=== PATIENT | female | born 1945 | race Caucasian/White ===

== ENCOUNTER 2019-03-11 13:49 | Outpatient (CLI) | payer MEDICARE ==
--- NOTE | 2019-03-11 14:14 | RAD ---
Exam: Left fifth toe 3 views HISTORY: Pain. FINDINGS: There appears be subluxation of the fifth digit at the metatarsophalangeal joint. Findings are presumed be chronic given bony remodeling. Acute osseous abnormality is not appreciated. IMPRESSION: Chronic changes in the fifth metatarsal phalangeal joint space.
== END 2019-03-11 13:50 | disposition home or self-care (01) ==
LOC: BICRAD 13:49
PROVIDERS: ATTEND Podiatrist
DX: M79.674 Pain in right toe(s) (principal)

== ENCOUNTER 2020-10-31 09:11 | Observation (INO) | payer MEDICARE ==
[2020-10-31 10:04] LABS: #Basophils 0.1 thou/uL (0.0-0.2); #Eosinphils 0.2 thou/uL (0.0-0.7); #Lymphocytes 2.4 thou/uL (1.20-3.40); #Monocytes 0.8 thou/uL (0.11-0.59); #Neutrophils 4.9 thou/uL (1.40-6.50); %Basophils 1.1 % (0.0-1.0); %Lymphocytes 28.4 % (21.0-51.0); %Monocytes 9.1 % (0.0-10.0); %Neutrophils 58.4 % (42.0-75.0); Hemoglobin 13.8 g/dL (12.0-16.0); Mean Corpuscular Hemoglobin 31.7 pg (27.0-31.0); Mean Corpuscular Volume 93.1 fL (78.0-98.0); Mean Platelet Volume 6.5 fL (7.4-10.4); Platelet Count 316 thou/uL (130-400); RBC Distribution Width 12.2 % (11.5-14.5); Red Blood Cell (RBC) Count 4.36 mill/uL (4.20-5.40); White Blood Cell (WBC) Count 8.3 thou/uL (4.8-10.8)
--- NOTE | 2020-10-31 10:18 | CT ---
Exam: CT brain PROVIDED CLINICAL HISTORY: Altered mental status COMPARISON: 04/04/2016 FINDINGS: The ventricular system is normal in size and morphology. No evidence for intracranial hemorrhage or mass effect. The extracranial soft tissues and osseous structures demonstrate no evidence for an acute abnormality. IMPRESSION: No evidence for intracranial hemorrhage or mass effect.
[2020-10-31 10:19] LABS: Bilirubin Negative (Negative); Blood, Urine Negative (Negative); Clarity Clear (Clear); Glucose, Urine (Dipstick) Normal (Negative); Ketone, Urine Negative (Negative); Leukocyte Negative Leu/uL (Negative); Nitrite Negative (Negative); Protein, Urine (Dipstick) Negative (Neg-Trace); Specific Gravity, Urine 1.009 (1.002-1.036); Urobilinogen Normal mg/dL (Less than 2); pH, Urine 7.5 (5.0-9.0)
--- NOTE | 2020-10-31 10:21 | RAD ---
EXAM: Portable chest PROVIDED CLINICAL HISTORY: Altered mental status COMPARISON: None FINDINGS: Cardiac and mediastinal silhouette is within normal limits. No focal consolidation, pleural fluid or pneumothorax evident. IMPRESSION: No evidence for an acute cardiopulmonary process.
[2020-10-31 10:28] LABS: ALT (SGPT) 32 U/L (8-55); AST (SGOT) 39 U/L (5-34); Albumin 4.6 g/dL (3.4-4.8); Alkaline Phosphatase 80 U/L (40-110); Anion Gap 17 mmol/L (10-20); BUN (Urea Nitrogen) 15 mg/dL (9.8-20.1); Bilirubin, Total 0.4 mg/dL (0.2-1.2); Calc. Creatinine Clearance 0 mL/min (70-130); Calcium 9.8 mg/dL (7.8-10.44); Carbon Dioxide 27 mmol/L (23-31); Chloride 98 mmol/L (98-107); Glucose 117 mg/dL (83-110); Potassium 4.5 mmol/L (3.5-5.1); Protein, Total 7.6 g/dL (5.8-8.1); Sodium 137 mmol/L (136-145)
[2020-10-31] MEDS ORDERED: hydrALAZINE 20 MG/ML VIAL ONE (11:04)
[2020-10-31 11:55] LABS: INR-International Normal Ratio 0.9; PTT 26.4 sec (22.9-36.1)
[2020-10-31 12:27] LABS: Free T4 (Free Thyroxine) 1.14 ng/dL (0.70-1.48); Thyroid Stimulating Hormone 3.786 uIU/mL (0.35-4.94)
[2020-10-31] MEDS ORDERED: Aspirin 325 MG TAB ONE (12:56)
[2020-10-31] MEDS ORDERED: hydrALAZINE 20 MG/ML VIAL SLOW IVP PRN ×2 (13:09→15:26)
[2020-10-31] MEDS ORDERED: Ondansetron PF 4 MG/2 ML Vial IVP PRN (13:12)
[2020-10-31] MEDS ORDERED: Ondansetron ODT 4 MG TAB PO PRN (13:12)
[2020-10-31] MEDS ORDERED: Senokot S 8.6-50 MG TAB PO PRN (13:12)
[2020-10-31] MEDS ORDERED: Cyanocobalamin 1000 MCG/ML VIAL IM SCH ×2 (13:15→17:15)
[2020-10-31] MEDS ORDERED: Sodium Chloride 0.9% 1,000 ML IV SCH (13:15)
[2020-10-31 13:34] LABS: Hemoglobin A1c 5.5 % (4.0-6.0)
[2020-10-31 14:17] LABS: Troponin I Less than 0.010 ng/mL (< 0.028)
--- NOTE | 2020-10-31 14:56 | MRI ---
EXAM: MRI Brain WO Con PROVIDED CLINICAL HISTORY: Stroke. Altered mental status. COMPARISON: CT head on 10/31/2020 FINDINGS: Increased T2-weighted signal intensity areas are seen within the right cerebellar hemisphere most lik chapin attributable to remote infarctions. There are no areas of restricted diffusion seen to suggest an acute infarction. Scattered punctate and minimal patchy areas of increased FLAIR and T2-weighted signal intensity are s een in the periventricular and subcortical white matter which are nonspecific but likely reflective of chronic small vessel ischemic changes. Mild cerebral and cerebellar volume loss is present. The ventricular system is normal in size, shape, and position for the degree of sulcal atrophy. Appropriate flow voids are demonstrated in the large intracranial vessels at the base of the brain. A few right-sided mastoid effusions are visualized. Minimal mucosal thickening is present in the righ t maxillary antrum. The orbits and remainder of the skull base demonstrates a normal MRI appearance. IMPRESSION: 1. No acute intracranial abnormality is demonstrated. 2. Remote infarctions right cerebellar hemisphere. 3. Findings likely attributable to mild chronic small vessel ischemic changes. 4. Right mastoid effusions..
--- NOTE | 2020-10-31 15:31 | PDOC.HHP ---
Hospitalist HPI Altered mentation History of Present Illness: Patient is a 74-year-old female with anxiety, hyperlipidemia and hypothyroidism presented to the emergency room with altered mentation. History obtained from the patient and the family at the bedside. Over the last 1 week patient has intermittent alteration in mentation. She has been saying that Lord is coming for her soon. The daughter states that she has been talking about things that do not make sense. Today she spent all of her morning calling family and letting them know that she would be going to [facility] soon. There is no weakness numbness of any of her extremities reported. She denies any vision abnormality, swallowing abnormality, fever, urinary or upper respiratory symptoms. Patient had first Covid vaccine approximately 2 weeks ago. She also had a fall 4 days ago while she was at a bookstore without any head injury or loss of consciousness. In the emergency room her initial vital signs show temperature 98.5, respiration of 16, pulse rate of 7 0 with a blood pressure of 183/89 with O2 saturation of 97% on room air. She received aspirin and 10 mg IV hydralazine in the emergency room. CT scan of the brain was negative for acute findings Allergies/Adverse Reactions: Allergy/AdvReac Type Severity Reaction Status Date / Time codeine Allergy Verified 01/15/20 19:44 Penicillins Allergy Verified 01/15/20 19:44 Home Medications: Medication Instructions Recorded Confirmed Type Calcium Carbonate/Vitamin D3 2 tablet PO BID 04/04/16 04/04/16 History [Calcium 600 + Vitamin D] Cetirizine HCl [Allergy Relief] 10 mg PO DAILY 04/04/16 04/04/16 History Ipratropium [place] [Ipratropium 1 spray EA NARE TID 04/04/16 04/04/16 History [place] 0.06% Nasal [place]] Levothyroxine Sodium [Synthroid] 137 mcg PO DAILY 04/04/16 04/04/16 History Meloxicam [Mobic] 15 mg PO DAILY 04/04/16 04/04/16 History Montelukast Sodium [Singulair] 10 mg PO HS 04/04/16 04/04/16 History Multivitamin [Multi-Vitamin Daily] 1 tablet PO DAILY 04/04/16 04/04/16 History Pregabalin [Lyrica] 225 mg PO TID 04/04/16 04/04/16 History Simvastatin [Zocor] 40 mg PO HS 04/04/16 04/04/16 History buPROPion HCl [Wellbutrin SR] 200 mg PO BID 04/04/16 04/04/16 History diphenhydrAMINE [Benadryl] 25 mg PO HS 04/04/16 04/04/16 History Past History: PAST MEDICAL HISTORY: Chronic low back pain, recurrent falls, history of UTI, hypothyroidism, hyperlipidemia, diverticulosis PAST SURGICAL HISTORY: Bilateral knee replacement ALLERGIES: Codeine and penicillin SOCIAL HISTORY: Currently lives at home with her family. 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 No alcohol tobacco or drug use. She makes her own decision with the help of her family FAMILY HISTORY: Patient denies any heart disease or diabetes in her family Hospitalist HPI ROS Respiratory: denies: cough, dry, shortness of breath, hemoptysis, SOB with excertion, pleuritic pain, sputum, wheezing, other Cardiovascular: denies: chest pain, palpitations, orthopnea, paroxysmal noc. dyspnea, edema, light headedness, other Gastrointestinal: denies: nausea, vomiting, abdominal pain, diarrhea, cons tipation, melena, hematochezia, other All other systems reviewed; all pertinent +/- noted in HPI/Subj Hospitalist Exam General Appearance: awake alert Eye: PERRL, anicteric sclera ENT: normocephalic atraumatic, no oropharyngeal lesions, moist mucosa Neck: supple, symmetric, no JVD Heart: RRR, no gallops, no rubs, normal peripheral pulses Respiratory: no wheezes, no rales, no ronchi, normal chest expansion Gastrointestinal: non-tender, non-distended, normal bowel sounds, no guarding, no rigidity Extremities: no cyanosis, no clubbing, no edema Skin: normal turgor, no lesions Neurological: cranial nerve grossly intact, normal sensation to touch, no weakness Musculoskeletal: normal tone, normal strength, no muscle wasting Psychiatric: normal affect, A&O x 3 Psychiatric - other findings: Intermittent confusion Hospitalist Results Result Diagrams: 10/31/20 09:48 10/31/20 09:48 Lab results: Laboratory Last Values WBC 8.3 thou/uL (4.8-10.8) 10/31/20 09:48 RBC 4.36 mill/uL (4.20-5.40) 10/31/20 09:48 Hgb 13.8 g/dL (12.0-16.0) 10/31/20 09:48 Hct 40.6 % (36.0-47.0) 10/31/20 09:48 MCV 93.1 fL (78.0-98.0) 10/31/20 09:48 MCH 31.7 pg (27.0-31.0) H 10/31/20 09:48 MCHC 34.0 g/dL (32.0-36.0) 10/31/20 09:48 RDW 12.2 % (11.5-14.5) 10/31/20 09:48 Plt Count 316 thou/uL (130-400) 10/31/20 09:48 MPV 6.5 fL (7.4-10.4) L 10/31/20 09:48 Neutrophils % 58.4 % (42.0-75.0) 10/31/20 09:48 Lymphocytes % 28.4 % (21.0-51.0) 10/31/20 09:48 Monocytes % 9.1 % (0.0-10.0) 10/31/20 09:48 Eosinophils % 3.0 % (0.0-10.0) 10/31/20 09:48 Basophils % 1.1 % (0.0-1.0) H 10/31/20 09:48 Neutrophils # 4.9 thou/uL (1.40-6.50) 10/31/20 09:48 Lymphocytes # 2.4 thou/uL (1.20-3.40) 10/31/20 09:48 Monocytes # 0.8 thou/uL (0.11-0.59) H 10/31/20 09:48 Eosinophils # 0.2 thou/uL (0.0-0.7) 10/31/20 09:48 Basophils # 0.1 thou/uL (0.0-0.2) 10/31/20 09:48 PT 12.0 sec (12.0-14.7) 10/31/20 11:38 INR 0.9 10/31/20 11:38 APTT 26.4 sec (22.9-36.1) 10/31/20 11:38 Sodium 137 mmol/L (136-145) 10/31/20 09:48 Potassium 4.5 mmol/L (3.5-5.1) 10/31/20 09:48 Chloride 98 mmol/L (98-107) 10/31/20 09:48 Carbon Dioxide 27 mmol/L (23-31) 10/31/20 09:48 Anion Gap 17 mmol/L (10-20) 10/31/20 09:48 BUN 15 mg/dL (9.8-20.1) 10/31/20 09:48 Creatinine 1.14 mg/dL (0.6-1.1) H 10/31/20 09:48 Estimated GFR (MDRD) 46 10/31/20 09:48 Glucose 117 mg/dL (83-110) H 10/31/20 09:48 Hemoglobin A1c 5.5 % (4.0-6.0) 10/31/20 09:40 Calcium 9.8 mg/dL (7.8-10.44) 10/31/20 09:48 Total Bilirubin 0.4 mg/dL (0.2-1.2) 10/31/20 09:48 AST 39 U/L (5-34) H 10/31/20 09:48 ALT 32 U/L (8-55) 10/31/20 09:48 Alkaline Phosphatase 80 U/L (40-110) 10/31/20 09:48 Ammonia 27 umol/L (18-72) 10/31/20 11:38 Troponin I Less than 0.010 ng/mL (< 0.028) 10/31/20 13:36 Serum Total Protein 7.6 g/dL (5.8-8.1) 10/31/20 09:48 Albumin 4.6 g/dL (3.4-4.8) 10/31/20 09:48 Globulin 3.0 g/dL (2.4-3.5) 10/31/20 09:48 Albumin/Globulin Ratio 1.5 g/dL (1.2-2.2) 10/31/20 09:48 Vitamin B12 376 pg/mL (211-911) 10/31/20 11:38 Folate 36.60 ng/mL (7.0-31.4) H 10/31/20 11:38 Free T4 1.14 ng/dL (0.70-1.48) 10/31/20 11:38 Free T3 1.86 pg/mL (1.71-3.71) 10/31/20 11:38 TSH 3rd Generation 3.7860 uIU/mL (0.35-4.94) 10/31/20 11:38 Urine Color Light-Yellow (Yellow) 10/31/20 09:54 Urine Clarity Clear (Clear) 10/31/20 09:54 Urine pH 7.5 (5.0-9.0) 10/31/20 09:54 Ur Specific [place] 1.009 (1.002-1.036) 10/31/20 09:54 Urine Protein Negative mg/dL (Neg-Trace) 10/31/20 09:54 Urine Glucose (UA) Normal mg/dL (Negative) 10/31/20 09:54 Urine Ketones Negative mg/dL (Negative) 10/31/20 09:54 Urine Blood Negative (Negative) 10/31/20 09:54 Urine Nitrite Negative (Negative) 10/31/20 09:54 Urine Bilirubin Negative (Negative) 10/31/20 09:54 Urine Urobilinogen Normal mg/dL (Less than 2) 10/31/20 09:54 Ur Leukocyte Esterase Negative [place]/uL (Negative) 10/31/20 09:54 EKG Status: image reviewed by me Additional Comments: Sinus rhythm with left axis deviation CT scan - head Status: image reviewed by me Additional Comments: No acute abnormality Chest x-ray Status: image reviewed by me Additional Comments: No edema or infiltrate Hospitalist H&P A/P (1) Encephalopathy, unspecified Code(s): G93.40 - ENCEPHALOPATHY, UNSPECIFIED Status: Acute (2) Elevated BP without diagnosis of hypertension Code(s): R03.0 - ELEVATED BLOOD-PRESSURE READING, W/O DIAGNOSIS OF HTN Status: Acute (3) Hypothyroidism Code(s): E03.9 - HYPOTHYROIDISM, UNSPECIFIED Status: Chronic (4) Anxiety Code(s): F41.9 - ANXIETY DISORDER, UNSPECIFIED Status: Chronic (5) Hyperlipidemia Code(s): E78.5 - HYPERLIPIDEMIA, UNSPECIFIED Status: Chronic (6) Vitamin B12 deficiency Code(s): E53.8 - DEFICIENCY OF OTHER SPECIFIED B GROUP VITAMINS Status: Acute (7) Chronic low back pain Code(s): M54.5 - LOW BACK PAIN; G89.29 - OTHER CHRONIC PAIN Status: Chronic Plan: 74-year-old female with hypothyroidism, hyperlipidemia presents with altered mentation as well as elevated blood pressure. Encephalopathy of unclear etiology CT brain negative for acute findings. Chest x-ray was negative. Urinalysis was negative. She was admitted in the past for altered mentation due to UTI. Plan: We will admit to stroke unit. Stroke work-up including MRI of the brain, echocardiogram and carotid Doppler. Neurology consultation. Hold fluoxetine. Frequent neuro checks. Physical therapy consultation. Fasting lipid profile in a.m. Anxiety Patient denies any suicidal ideation Hold fluoxetine for now due to encephalopathy Elevated blood pressure Patient denies any history of hypertension. Will continue to monitor Hypothyroidism. TSH was normal at 3.78. Will resume levothyroxine Hyperlipidemia Will resume statins. Fasting lipid profile in a.m. Vitamin B12 deficiency Vitamin B12 is in the low normal range. Will start vitamin B12 supplementation Chronic low back pain with recurrent falls Physical therapy has been consulted. Full code Disposition: Probably home and 24 hours based on the stroke work-up. Will consider home health care Plan of care was discussed with the patient and the daughter at the bedside
[2020-10-31] MEDS ORDERED: Amlodipine 5 MG TAB PO SCH (15:45)
[2020-10-31 16:23] VITALS: BMI 31.3
[2020-10-31] MEDS ORDERED: Atorvastatin Calcium 10 MG TAB PO SCH (21:00)
[2020-10-31] MEDS ORDERED: Simvastatin 40 MG TAB PO SCH (21:00)
[2020-10-31] MEDS ORDERED: Montelukast Sodium 10 mg Tablet PO SCH (21:00)
[2020-10-31] MEDS: Acetaminophen 325 MG TAB PO PRN (22:22)
--- NOTE | 2020-10-31 23:55 | ULT ---
BILATERAL CAROTID DUPLEX ULTRASOUND: HISTORY: Evaluate for stroke. TECHNIQUE: Grayscale, color-flow and spectral Doppler ultrasound imaging of the extracranial carotid artery syst ems and vertebral arteries was performed bilaterally. FINDINGS: No large amount of echogenic plaque is seen involving the common carotid or internal carotid arteries . Minimal soft plaque in the right carotid bulb. The peak systolic velocity in the right ICA measures 56.3 cm/s. The peak systolic velocity in the ri ght CCA measures 85.6 cm/s. The peak systolic velocity in the left ICA measures 48.8 cm/s. The peak systolic velocity in the l eft CCA measures 70.1 cm/s. The right IC/CC ration is0.7. The left IC/CC ratio is 0.7. Vertebral flow: antegrade, bilaterally. . IMPRESSION: No hemodynamically significant stenosis of either cervical carotid artery
[2020-11-01 00:46] LABS: SARS-CoV-2 PCR by NAA Not Detected (NotDetected)
[2020-11-01] MEDS: Acetaminophen 325 MG TAB PO PRN (02:23)
[2020-11-01 05:44] LABS: Anion Gap 16 mmol/L (10-20); BUN (Urea Nitrogen) 13 mg/dL (9.8-20.1); Calc. Creatinine Clearance 53 mL/min (70-130); Calcium 9.1 mg/dL (7.8-10.44); Carbon Dioxide 21 mmol/L (23-31); Cardiac Risk 2.5 (Less than 4.5); Chloride 99 mmol/L (98-107); Cholesterol 148 mg/dl (< 200 Desired); Glucose 113 mg/dL (83-110); HDL Cholesterol 60 mg/dL (>60 Neg Risk); LDL Cholesterol, Calculated 64 mg/dL; Sodium 132 mmol/L (136-145); Triglycerides 122 mg/dL (Less than 150)
[2020-11-01] MEDS ORDERED: Levothyroxine Sodium 125 MCG TAB PO SCH (06:00)
--- NOTE | 2020-11-01 07:34 | PDOC.HOSPP ---
- Subjective Encounter Date: 11/01/20 Encounter Time: 10:45 Subjective: Patient reports feeling a little less confused. Her at the bedside reports that she seems about the same and that this is been a progressive thing over the last few months specifically worse over the last week or 2. Does not seem to affect her memory as much but it does affect her behavior and her ability to think clearly as well as her ability to do things like right things. - Objective Vital Signs & Weight: Vital Signs (12 hours) Temp Pulse Resp BP Pulse Ox 11/01/20 04:13 96 11/01/20 02:22 98.1 F 62 20 140/72 96 10/31/20 23:10 98.1 F 65 20 158/83 H 97 Weight Weight 160 lb 8 oz I&O: 10/31/20 11/01/20 11/02/20 06:59 06:59 06:59 Intake Total 420 Balance 420 Result Diagrams: 10/31/20 09:48 11/01/20 04:46 Hospitalist ROS - Review of Systems Constitutional: denies: fever, chills Respiratory: denies: cough, shortness of breath Cardiovascular: denies: chest pain, palpitations Gastrointestinal: denies: nausea, vomiting, abdominal pain - Medication Medications: Active Medications Generic Name Dose Route Start Last Admin Trade Name Freq PRN Reason Stop Dose Admin Acetaminophen 650 mg 10/31/20 13:12 11/01/20 02:23 Acetaminophen 325 Mg Tab PO 650 mg Q4H PRN Administration Headache/Fever/Mild Pain (1-3) Atorvastatin Calcium 10 mg 10/31/20 21:00 10/31/20 20:39 Atorvastatin Calcium 10 Mg Tab PO 10 mg HS JAMI Administration Montelukast Sodium 10 mg 10/31/20 21:00 10/31/20 20:39 Montelukast Sodium 10 Mg Tablet PO 10 mg QPM JAMI Administration Sodium Chloride 10 ml 10/31/20 13:09 10/31/20 20:40 Flush - Normal Saline 10 Ml Syringe IVF 10 ml PRN PRN Administration Saline Flush Hospitalist Exam Vitals: Vital Signs (12 hours) Temp Pulse Resp BP Pulse Ox 11/01/20 04:13 96 11/01/20 02:22 98.1 F 62 20 140/72 96 10/31/20 23:10 98.1 F 65 20 158/83 H 97 Weight Weight 160 lb 8 oz General Appearance: NAD, awake alert ENT: moist mucosa Heart: RRR, no murmur, no gallops, no rubs Respiratory: CTAB, no wheezes, no rales, no ronchi Gastrointestinal: soft, non-tender, non-distended, normal bowel sounds Extremities: no edema Psychiatric: oriented to person, oriented to place, oriented to time Psychiatric - other findings: Odd behavior and affect Hosp A/P - Plan 74-year-old female with hypothyroidism, hyperlipidemia presents with altered mentation as well as elevated blood pressure. Encephalopathy of unclear etiology CT brain negative for acute findings. Chest x-ray was negative. Urinalysis was negative. She was admitted in the past for altered mentation due to UTI. Plan: We will admit to stroke unit. Stroke work-up including MRI of the brain (negative), echocardiogram and carotid Doppler (negative). Neurology consultationDr. Nunez has done an EEG which was negative for seizure activity. She recommends outpatient neurology clinic follow-up and neuropsychiatric testing. Frequent neuro checks. Physical therapy consultation. Fasting lipid profile in a.m.- normal. Anxiety Patient denies any suicidal ideation Elevated blood pressure Patient denies any history of hypertension. Will continue to monitor Hypothyroidism. TSH was normal at 3.78. Will resume levothyroxine Hyperlipidemia Will resume statins. Fasting lipid profile in a.m. Vitamin B12 deficiency Vitamin B12 is in the low normal range. Will start vitamin B12 supplementation Chronic low back pain with recurrent falls Physical therapy has been consulted. Full code Disposition: Discharged home in 's care and follow-up with neurology clinic and neuropsychiatric testing. MRI Brain WO Con PROVIDED CLINICAL HISTORY: Stroke. Altered mental status. COMPARISON: CT head on 10/31/2020 FINDINGS: Increased T2-weighted signal intensity areas are seen within the right cerebellar hemisphere most likely attributable to remote infarctions. There are no areas of restricted diffusion seen to suggest an acute infarction. Scattered punctate and minimal patchy areas of increased FLAIR and T2-weighted signal intensity are seen in the periventricular and subcortical white matter which are nonspecific but likely reflective of chronic small vessel ischemic changes. Mild cerebral and cerebellar volume loss is present. The ventricular system is normal in size, shape, and position for the degree of sulcal atrophy. Appropriate flow voids are demonstrated in the large intracranial vessels at the base of the brain. A few right-sided mastoid effusions are visualized. Minimal mucosal thickening is present in the right maxillary antrum. The orbits and remainder of the skull base demonstrates a normal MRI appearance. IMPRESSION: 1. No acute intracranial abnormality is demonstrated. 2. Remote infarctions right cerebellar hemisphere. 3. Findings likely attributable to mild chronic small vessel ischemic changes. 4. Right mastoid effusions.. BILATERAL CAROTID DUPLEX ULTRASOUND: HISTORY: Evaluate for stroke. TECHNIQUE: Grayscale, color-flow and spectral Doppler ultrasound imaging of the extracranial carotid artery systems and vertebral arteries was performed bilat erally. FINDINGS: No large amount of echogenic plaque is seen involving the common carotid or internal carotid arteries. Minimal soft plaque in the right carotid bulb. The peak systolic velocity in the right ICA measures 56.3 cm/s. The peak systolic velocity in the right CCA measures 85.6 cm/s. The peak systolic velocity in the left ICA measures 48.8 cm/s. The peak systolic velocity in the left CCA measures 70.1 cm/s. The right IC/CC ration is0.7. The left IC/CC ratio is 0.7. Vertebral flow: antegrade, bilaterally. . IMPRESSION: No hemodynamically significant stenosis of either cervical carotid artery CT brain PROVIDED CLINICAL HISTORY: Altered mental status COMPARISON: 04/04/2016 FINDINGS: The ventricular system is normal in size and morphology. No evidence for intracranial hemorrhage or mass effect. The extracranial soft tissues and osseous structures demonstrate no evidence for an acute abnormality. IMPRESSION: No evidence for intracranial hemorrhage or mass effect.
[2020-11-01] MEDS ORDERED: Cyanocobalamin (Vitamin B-12) 1,000 MCG TAB PO SCH (09:00)
[2020-11-01] MEDS ORDERED: Amlodipine 5 MG TAB PO SCH (09:00)
[2020-11-01] MEDS ORDERED: FLU VACC QS2020-21(65YR UP)/PF 240 MCG/0.7 ML SYRINGE IM ONE (09:00)
[2020-11-01] MEDS ORDERED: Aspirin 81 mg Enteric Coated Tablet PO SCH (09:00)
[2020-11-01] MEDS ORDERED: Folic Acid 1 MG TAB PO SCH (09:00)
[2020-11-01] MEDS ORDERED: Enoxaparin Sodium 40 MG/0.4 ML SYRINGE SC SCH (09:00)
[2020-11-01] MEDS ORDERED: Albuterol Sulfate 2.5 mg/3 ml Neb NEB PRN (09:33)
--- NOTE | 2020-11-01 12:01 | PDOC.EEG ---
Neurology EEG Report - Report Report: This EEG was performed using 24 channel [employer] video EEG machine with 24 disc electrodes. This was an extended 2 hours 5 minutes of inpatient video EEG recording. Digital analysis of the EEG was done for spike and seizure detection which revealed no abnormalities. Background: There is a non sustained posterior background rhythm is 9-10 Hz. Minimal reactivity seen with eye opening and closure. Hyperventilation: Not performed. Photic Stimulation: Bioccipital symmetric driving response is observed. Sleep: Drowsiness and sleep are observed. EEG Diagnosis: Normal awake, drowsy and sleep EEG.
--- NOTE | 2020-11-01 12:37 | CON ---
NEUROLOGY CONSULTATION DATE OF CONSULTATION: 11/01/2020 REASON FOR CONSULTATION: Altered mental status. HISTORY OF PRESENT ILLNESS: Ms. Lomeli is a 74-year-old female with medical history significant for hypothyroidism, hyperlipidemia, and anxiety, presented to the emergency room with altered mental status. History is obtained from the patient and also by the at bedside. Per her , over the last 1 week, she has intermittent alteration in mentation and she has been talking about things which do not make sense. Yesterday, she spent all day calling family and letting them know that [facility]. The patient denies any nausea, vomiting, headache, chest pain, abdominal pain, focal weakness, focal paresthesias, double vision, loss of vision, confusion, recent illness or recent exposure to COVID- 19. The patient has the first COVID vaccine approximately 2 weeks ago and sustained a fall 4 days ago at the [employer]store without any loss of consciousness or head injury. In the emergency room, her vitals were stable. Head CT was done, which was negative for acute intracranial pathology. She was given aspirin and hydralazine because blood pressure was 183/89. Allergies/Adverse Reactions: Allergy/AdvReac Type Severity Reaction Status Date / Time codeine Allergy Verified 01/15/20 19:44 Penicillins Allergy Verified 01/15/20 19:44 Home Medications: Medication Instructions Recorded Confirmed Type Calcium Carbonate/Vitamin D3 2 tablet PO BID 04/04/16 04/04/16 History [Calcium 600 + Vitamin D] Cetirizine HCl [Allergy Relief] 10 mg PO DAILY 04/04/16 04/04/16 History Ipratropium [place] [Ipratropium 1 spray EA NARE TID 04/04/16 04/04/16 History [place] 0.06% Nasal [place]] Levothyroxine Sodium [Synthroid] 137 mcg PO DAILY 04/04/16 04/04/16 History Meloxicam [Mobic] 15 mg PO DAILY 04/04/16 04/04/16 History Montelukast Sodium [Singulair] 10 mg PO HS 04/04/16 04/04/16 History Multivitamin [Multi-Vitamin Daily] 1 tablet PO DAILY 04/04/16 04/04/16 History Pregabalin [Lyrica] 225 mg PO TID 04/04/16 04/04/16 History Simvastatin [Zocor] 40 mg PO HS 04/04/16 04/04/16 History buPROPion HCl [Wellbutrin SR] 200 mg PO BID 04/04/16 04/04/16 History diphenhydrAMINE [Benadryl] 25 mg PO HS 04/04/16 04/04/16 History PAST MEDICAL HISTORY: Chronic low back pain, history of UTIs, hypothyroidism, hyperlipidemia, diverticulitis, and recurrent falls. PAST SURGICAL HISTORY: Bilateral knee replacement. SOCIAL HISTORY: The patient lives at home with the family. 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 She denies alcohol or illegal drug abuse. FAMILY HISTORY: No significant history of coronary artery disease or diabetes. REVIEW OF SYSTEMS: All systems reviewed and were negative except the pertinent positive and negative mentioned in the HPI. PHYSICAL EXAMINATION: General Appearance: awake alert Eye: PERRL, anicteric sclera ENT: normocephalic atraumatic, no oropharyngeal lesions, moist mucosa Neck: supple, symmetric, no JVD Heart: RRR, no gallops, no rubs, normal peripheral pulses Respiratory: no wheezes, no rales, no ronchi, normal chest expansion Gastrointestinal: non-tender, non-distended, normal bowel sounds, no guarding, no rigidity Extremities: no cyanosis, no clubbing, no edema Skin: normal turgor, no lesions Neurological: Mental status; the patient is alert and oriented to person, place, and time. Recent and remote memory, intact. Speech is clear. Cranial nerves 2 through 12 intact. Motor; muscle tone and bulk are normal. Strength 5/5 bilaterally. Sensory intact. Cerebellar, finger-nose testing intact. Gait deferred due to the patient's safety reason. DIAGNOSTIC STUDIES: Data reviewed. Lab results: WBC 8.3 thou/uL (4.8-10.8) 10/31/20 09:48 RBC 4.36 mill/uL (4.20-5.40) 10/31/20 09:48 Hgb 13.8 g/dL (12.0-16.0) 10/31/20 09:48 Hct 40.6 % (36.0-47.0) 10/31/20 09:48 MCV 93.1 fL (78.0-98.0) 10/31/20 09:48 MCH 31.7 pg (27.0-31.0) H 10/31/20 09:48 MCHC 34.0 g/dL (32.0-36.0) 10/31/20 09:48 RDW 12.2 % (11.5-14.5) 10/31/20 09:48 Plt Count 316 thou/uL (130-400) 10/31/20 09:48 MPV 6.5 fL (7.4-10.4) L 10/31/20 09:48 Neutrophils % 58.4 % (42.0-75.0) 10/31/20 09:48 Lymphocytes % 28.4 % (21.0-51.0) 10/31/20 09:48 Monocytes % 9.1 % (0.0-10.0) 10/31/20 09:48 Eosinophils % 3.0 % (0.0-10.0) 10/31/20 09:48 Basophils % 1.1 % (0.0-1.0) H 10/31/20 09:48 Neutrophils # 4.9 thou/uL (1.40-6.50) 10/31/20 09:48 Lymphocytes # 2.4 thou/uL (1.20-3.40) 10/31/20 09:48 Monocytes # 0.8 thou/uL (0.11-0.59) H 10/31/20 09:48 Eosinophils # 0.2 thou/uL (0.0-0.7) 10/31/20 09:48 Basophils # 0.1 thou/uL (0.0-0.2) 10/31/20 09:48 PT 12.0 sec (12.0-14.7) 10/31/20 11:38 INR 0.9 10/31/20 11:38 APTT 26.4 sec (22.9-36.1) 10/31/20 11:38 Sodium 137 mmol/L (136-145) 10/31/20 09:48 Potassium 4.5 mmol/L (3.5-5.1) 10/31/20 09:48 Chloride 98 mmol/L (98-107) 10/31/20 09:48 Carbon Dioxide 27 mmol/L (23-31) 10/31/20 09:48 Anion Gap 17 mmol/L (10-20) 10/31/20 09:48 BUN 15 mg/dL (9.8-20.1) 10/31/20 09:48 Creatinine 1.14 mg/dL (0.6-1.1) H 10/31/20 09:48 Estimated GFR (MDRD) 46 10/31/20 09:48 Glucose 117 mg/dL (83-110) H 10/31/20 09:48 Hemoglobin A1c 5.5 % (4.0-6.0) 10/31/20 09:40 Calcium 9.8 mg/dL (7.8-10.44) 10/31/20 09:48 Total Bilirubin 0.4 mg/dL (0.2-1.2) 10/31/20 09:48 AST 39 U/L (5-34) H 10/31/20 09:48 ALT 32 U/L (8-55) 10/31/20 09:48 Alkaline Phosphatase 80 U/L (40-110) 10/31/20 09:48 Ammonia 27 umol/L (18-72) 10/31/20 11:38 Troponin I Less than 0.010 ng/mL (< 0.028) 10/31/20 13:36 Serum Total Protein 7.6 g/dL (5.8-8.1) 10/31/20 09:48 Albumin 4.6 g/dL (3.4-4.8) 10/31/20 09:48 Globulin 3.0 g/dL (2.4-3.5) 10/31/20 09:48 Albumin/Globulin Ratio 1.5 g/dL (1.2-2.2) 10/31/20 09:48 Vitamin B12 376 pg/mL (211-911) 10/31/20 11:38 Folate 36.60 ng/mL (7.0-31.4) H 10/31/20 11:38 Free T4 1.14 ng/dL (0.70-1.48) 10/31/20 11:38 Free T3 1.86 pg/mL (1.71-3.71) 10/31/20 11:38 TSH 3rd Generation 3.7860 uIU/mL (0.35-4.94) 10/31/20 11:38 Urine Color Light-Yellow (Yellow) 10/31/20 09:54 Urine Clarity Clear (Clear) 10/31/20 09:54 Urine pH 7.5 (5.0-9.0) 10/31/20 09:54 Ur Specific [place] 1.009 (1.002-1.036) 10/31/20 09:54 Urine Protein Negative mg/dL (Neg-Trace) 10/31/20 09:54 Urine Glucose (UA) Normal mg/dL (Negative) 10/31/20 09:54 Urine Ketones Negative mg/dL (Negative) 10/31/20 09:54 Urine Blood Negative (Negative) 10/31/20 09:54 Urine Nitrite Negative (Negative) 10/31/20 09:54 Urine Bilirubin Negative (Negative) 10/31/20 09:54 Urine Urobilinogen Normal mg/dL (Less than 2) 10/31/20 09:54 Ur Leukocyte Esterase Negative [place]/uL (Negative) 10/31/20 09:54 EKG Status: image reviewed by me Additional Comments: Sinus rhythm with left axis deviation CT scan - head Status: image reviewed by me Additional Comments: No acute abnormality Chest x-ray Status: image reviewed by me Additional Comments: No edema or infiltrate ASSESSMENT AND PLAN: (1) Encephalopathy, unspecified Code(s): G93.40 - ENCEPHALOPATHY, UNSPECIFIED Status: Acute (2) Elevated BP without diagnosis of hypertension Code(s): R03.0 - ELEVATED BLOOD-PRESSURE READING, W/O DIAGNOSIS OF HTN Status: Acute (3) Hypothyroidism Code(s): E03.9 - HYPOTHYROIDISM, UNSPECIFIED Status: Chronic (4) Anxiety Code(s): F41.9 - ANXIETY DISORDER, UNSPECIFIED Status: Chronic (5) Hyperlipidemia Code(s): E78.5 - HYPERLIPIDEMIA, UNSPECIFIED Status: Chronic (6) Vitamin B12 deficiency Code(s): E53.8 - DEFICIENCY OF OTHER SPECIFIED B GROUP VITAMINS Status: Acute (7) Chronic low back pain Code(s): M54.5 - LOW BACK PAIN; G89.29 - OTHER CHRONIC PAIN Status: Chronic Ms. Stephanie Lomeli is a 74-year-old female with history significant for hypothyroidism, hyperlipidemia, presented with episodes of altered mental status. Head CT reviewed, which was negative for acute intracranial pathology. MRI of the brain reviewed, which was negative for acute intracranial pathology. Carotid Dopplers did not reveal hemodynamically significant stenosis. EEG reviewed, which was negative for seizure activity. We did not find any evidence of neurological cause for her altered mental status. 2D echo completed, results pending. Neuro checks every 4 hours. Continue home medications. Continue medical management per primary team. Telemetry to rule out arrhythmias. Deep venous thrombosis prophylaxis. Plan discussed in detail with the patient, at bedside, daughter on the phone, and also with the nursing staff. Thank you for the consult. Job ID: [id number] [facility] CAN[facility]ER CENTERAdolfo
[2020-11-01] MEDS ORDERED: Ipratropium Bromide 0.06% Nasal Inhaler 15ml EA NARE SCH (15:00)
--- NOTE | 2020-11-01 15:45 | PDOC.DS.DS ---
Provider Date of Admission: 10/31/20 11:35 Date of Discharge: 11/01/20 Admitting Provider: Lexx Jones MD Consultations: Neurology (Dr. Nunez) Primary Care Physician: Toño Limon MD Course Hospital Course: This is a 74-year-old female with a history of anxiety who presented to the emergency room sent by her family for altered mental status. Patient has been having days where she wants sleep at all and stays up all night praying to God and saying that she is in a go to heaven soon. She does report some difficulty with thinking straight. No memory problems. She has had an odd affect and has had trouble thinking clearly. Also has had trouble doing things like writing things per her . Patient was evaluated in the emergency room she was admitted for stroke work-up. She did have some elevated blood pressures in the hospital and was started on a low-dose of amlodipine. She was also started on aspirin. Patient's MRI showed some old small cerebellar strokes but nothing a cute. Neurology was consulted and EEG showed no evidence of seizure activity. Patient was cleared by neurology for outpatient follow-up. It is possible that her symptoms are more psychiatric in nature versus onset of frontotemporal dementia. She will need outpatient neuropsychiatric testing. We will send her home with a sleep aid to see if that will help her. Pertinent Studies: MRI Brain WO Con PROVIDED CLINICAL HISTORY: Stroke. Altered mental status. COMPARISON: CT head on 10/31/2020 FINDINGS: Increased T2-weighted signal intensity areas are seen within the right cerebellar hemisphere most likely attributable to remote infarctions. There are no areas of restricted diffusion seen to suggest an acute infarction. Scattered punctate and minimal patchy areas of increased FLAIR and T2-weighted signal intensity are seen in the periventricular and subcortical white matter which are nonspecific but likely reflective of chronic small vessel ischemic changes. Mild cerebral and cerebellar volume loss is present. The ventricular system is normal in size, shape, and position for the degree of sulcal atrophy. Appropriate flow voids are demonstrated in the large intracranial vessels at the base of the brain. A few right-sided mastoid effusions are visualized. Minimal mucosal thickening is present in the right maxillary antrum. The orbits and remainder of the skull base demonstrates a normal MRI appearance. IMPRESSION: 1. No acute intracranial abnormality is demonstrated. 2. Remote infarctions right cerebellar hemisphere. 3. Findings likely attributable to mild chronic small vessel ischemic changes. 4. Right mastoid effusions.. BILATERAL CAROTID DUPLEX ULTRASOUND: HISTORY: Evaluate for stroke. TECHNIQUE: Grayscale, color-flow and spectral Doppler ultrasound imaging of the extracranial carotid artery systems and vertebral arteries was performed bilaterally. FINDINGS: No large amount of echogenic plaque is seen involving the common carotid or internal carotid arteries. Minimal soft plaque in the right carotid bulb. The peak systolic velocity in the right ICA measures 56.3 cm/s. The peak systolic velocity in the right CCA measures 85.6 cm/s. The peak systolic velocity in the left ICA measures 48.8 cm/s. The peak systolic velocity in the left CCA measures 70.1 cm/s. The right IC/CC ration is0.7. The left IC/CC ratio is 0.7. Vertebral flow: antegrade, bilaterally. . IMPRESSION: No hemodynamically significant stenosis of either cervical carotid artery CT brain PROVIDED CLINICAL HISTORY: Altered mental status COMPARISON: 04/04/2016 FINDINGS: The ventricular system is normal in size and morphology. No evidence for intracranial hemorrhage or mass effect. The extracranial soft tissues and osseous structures demonstrate no evidence for an acute abnormality. IMPRESSION: No evidence for intracranial hemorrhage or mass effect. EEG This EEG was performed using 24 channel [employer] video EEG machine with 24 disc emma ctrodes. This was an extended 2 hours 5 minutes of inpatient video EEG recording. Digital analysis of the EEG was done for spike and seizure detection which revealed no abnormalities. Background: There is a non sustained posterior background rhythm is 9-10 Hz. Minimal reactivity seen with eye opening and closure. Hyperventilation: Not performed. Photic Stimulation: Bioccipital symmetric driving response is observed. Sleep: Drowsiness and sleep are observed. EEG Diagnosis: Normal awake, drowsy and sleep EEG. Resuscitation Status: 10/31/20 13:12 Resuscitation Status Routine Resuscitation Status: FULL: Full Resuscitation Lab Results: 10/31/20 09:48 11/01/20 04:46 Abnormal Lab Results - Last 48 hrs 10/31/20 09:48: Creatinine 1.14 H, AST 39 H 10/31/20 09:48: MCH 31.7 H, MPV 6.5 L, Basophils % 1.1 H, Monocytes # 0.8 H 10/31/20 11:38: Folate 36.60 H 11/01/20 04:46: Sodium 132 L, Carbon Dioxide 21 L Microbiology - Entire Visit 10/31/20 09:54 Urine clean catch Urine Culture - Preliminary Vitals: Vital Signs (12 hours) Temp Pulse Pulse Pulse Resp BP BP 11/01/20 11:52 97.9 F 74 20 11/01/20 11:09 73 76 149/74 H 143/81 H 11/01/20 07:36 98 F 61 20 11/01/20 04:13 BP BP Pulse Ox 11/01/20 11:52 144/68 H 97 11/01/20 11:09 11/01/20 07:36 143/67 H 97 11/01/20 04:13 96 Weight Weight 160 lb 8 oz Physical Exam: The patient was seen and examined on the day of discharge. Problem Assessment: Encephalopathy psychiatric versus frontotemporal dementia Anxiety Hypertensionnew onset Hypothyroidism. Hyperlipidemia Vitamin B12 deficiency Chronic low back pain with recurrent falls Plan of Treatment: We will start patient on baby aspirin and daily amlodipine. We will give her a trial of trazodone at night to help her with sleep. Patient is to follow-up with her primary care physician about the insomnia and with Dr. Masterson about the personality and confusion issues. She will need outpatient referral for neuropsychiatric testing from Dr. Masterson's office. I have counseled patient and her that she should not drive but that he should drive her anywhere she needs to go. Time Spent in discharge related activities (mins): 32 Plan Prescriptions: Aspirin [Ecotrin Low Strength] 81 mg PO DAILY #30 tab Amlodipine [Norvasc] 5 mg PO DAILY #30 tab traZODone HCl [Trazodone HCl] 50 mg PO HS PRN #30 tablet PRN Reason: Insomnia Home Medications: Medication Instructions Recorded Confirmed Type Calcium Carbonate/Vitamin D3 2 tablet PO BID 04/04/16 10/31/20 History [Calcium 600 + Vitamin D] Cetirizine HCl [Allergy Relief] 10 mg PO DAILY 04/04/16 10/31/20 History Ipratropium [place] [Ipratropium 1 spray EA NARE TID 04/04/16 10/31/20 History [place] 0.06% Nasal [place]] Levothyroxine Sodium [Synthroid] 125 mcg PO DAILY 04/04/16 10/31/20 History Montelukast Sodium [Singulair] 10 mg PO HS 04/04/16 10/31/20 History Multivitamin [Multi-Vitamin Daily] 1 tablet PO DAILY 04/04/16 10/31/20 History Simvastatin [Zocor] 40 mg PO HS 04/04/16 10/31/20 History ALButerol Sulfate [Ventolin Neb] 2.5 mg INH PRN PRN 10/31/20 10/31/20 History Dextromethorphan Polistirex 30 mg PO HS 10/31/20 10/31/20 History [Delsym] FLUoxetine HCl [Fluoxetine HCl] 20 mg PO DAILY 10/31/20 10/31/20 History Levocetirizine Dihydrochloride 5 mg PO HS 10/31/20 10/31/20 History [Xyzal] Magnesium 30 mg PO HS 10/31/20 10/31/20 History Amlodipine [Norvasc] 5 mg PO DAILY #30 tab 11/01/20 Rx Aspirin [Ecotrin Low Strength] 81 mg PO DAILY #30 tab 11/01/20 Rx Omeprazole 20 mg PO DAILY 11/01/20 11/01/20 History traZODone HCl [Trazodone HCl] 50 mg PO HS PRN #30 tablet 11/01/20 Rx Allergies: codeine Allergy (Verified 01/15/20 19:44) Penicillins Allergy (Verified 01/15/20 19:44) Activity:: Activity as Tolerated Nourishment:: Heart Healthy Diet, Low Sodium Diet Therapies:: Not Applicable Equipment/Supplies:: Not Applicable IV Therapy:: Not Applicable Referrals: Toño Limon MD [Primary Care Provider] - Rojelio Masterson MD [Active] - 2-3 Weeks (Follow-up in neurology clinic and get a referral for neuropsychiatric testing.) Disposition: HOME Quality CORE MEASURES:: N/A
[2020-11-01 16:17] VITALS: BP 132/70; TEMP 97.8
[2020-11-01] MEDS ORDERED: Dextromethorphan Polistirex 30 MG/5 ML (89 ML BOTTLE) PO SCH (21:00)
[2020-11-01] MEDS ORDERED: Atorvastatin Calcium 20 MG TAB PO SCH (21:00)
[2020-11-01] MEDS ORDERED: Montelukast Sodium 10 mg Tablet PO SCH (21:00)
[2020-11-01] MEDS ORDERED: Calcium Carbonate 600 MG + Vit D TAB PO SCH (21:00)
[2020-11-01] MEDS ORDERED: Magnesium Oxide 250 MG TAB PO SCH (21:00)
[2020-11-01] MEDS ORDERED: Non-Formulary Item 1 EACH (Levocetirizine Dihydrochloride [Xyzal] 5 MG Tablet) PO SCH (21:00)
[2020-11-02] MEDS ORDERED: Levothyroxine Sodium 125 MCG TAB PO SCH (06:00)
[2020-11-02] MEDS ORDERED: FLUoxetine HCl 20 MG CAP PO SCH (09:00)
[2020-11-02] MEDS ORDERED: Multivit, Therapeutic 1 TAB PO SCH (09:00)
[2020-11-02] MEDS ORDERED: Loratadine 10 MG TAB PO SCH (09:00)
== END 2020-11-01 17:34 | disposition home or self-care (01) ==
LOC: ERS 09:11 → 2SE 11:35
PROVIDERS: ADMIT Internal Medicine; ATTEND Emergency Medicine
DX: G93.40 Encephalopathy, unspecified (principal); F41.9 Anxiety disorder, unspecified; I10 Essential (primary) hypertension; E03.9 Hypothyroidism, unspecified; E78.5 Hyperlipidemia, unspecified; D51.9 Vitamin B12 deficiency anemia, unspecified; G89.29 Other chronic pain; M54.5 Low back pain; R29.6 Repeated falls; Z79.899 Other long term (current) drug therapy; Z88.0 Allergy status to penicillin; Z88.5 Allergy status to narcotic agent; Z96.653 Presence of artificial knee joint, bilateral; Z20.822 Contact with and (suspected) exposure to COVID-19
CPT/HCPCS: 70450; 70551; 71045; 80048; 80061; 81003; 82140; 82607; 82746; 83036; 84439; 84481; 84484 ×2; 85610; 85730; 87086; 93005; 93880; 95712; 95819; 95957; 96374; 97116; 97139 ×2; 99285; U0003; U0005; 36415; 80053; 84443; 85025; 87635; 96372; G0378; J0360; J1650; J3420

== ENCOUNTER 2021-07-25 11:11 | Outpatient (CLI) | payer MEDICARE | END 2021-07-25 11:12 | disposition home or self-care (01) | LOC: BICRAD 11:11 | PROVIDERS: ATTEND Podiatrist | DX: M79.671 Pain in right foot (principal); R60.0 Localized edema; M19.071 Primary osteoarthritis, right ankle and foot; M85.871 Other specified disorders of bone density and structure, right ankle and foot ==

== ENCOUNTER 2023-03-27 07:47 | Day surgery (SDC) | payer MEDICARE ==
[2023-03-26 10:11] VITALS: BMI 27.3
[~2023-03-27 07:47] MED LIST: EPINEPHrine 0.3 MG in Ophthalmic Irrigation Solution 500 ML IRR SCH; Midazolam HCl 2 mg/2 ml Vial ONE; fentaNYL 50 mcg/mL 1 mL Vial ONE
[2023-03-27] MEDS ORDERED: Cyclopentolate 1% Opth Drop 2 ML BOT ONE (08:17)
[2023-03-27] MEDS ORDERED: PHENYLephrine 2.5% Ophth Soln 15 ml Bottle ONE (08:17)
[2023-03-27] MEDS ORDERED: Bupivacaine 0.75% 10 ML VIAL ONE (09:16)
[2023-03-27] MEDS ORDERED: CEFAZOLIN 1 GM VIAL ONE (09:16)
[2023-03-27] MEDS ORDERED: Indocyanine Green 25 MG/10 ML VIAL ONE (09:16)
[2023-03-27] MEDS ORDERED: PROPOFOL 200 MG/20 ML VIAL ONE (09:16)
[2023-03-27] MEDS ORDERED: Maxitrol 0.1% Opth Oint 3.5 GM TUBE ONE (09:16)
[2023-03-27] MEDS ORDERED: Lidocaine 1% PF 5 ML VIAL ONE (09:16)
[2023-03-27] MEDS ORDERED: Lidocaine 4% PF 5 ML AMP ONE (09:16)
== END 2023-03-27 10:59 | disposition home or self-care (01) ==
LOC: SDC 07:47
PROVIDERS: ATTEND Ophthalmology Retina Specialist
PROC: 08T43ZZ Resection of Right Vitreous, Percutaneous Approach (ICD-10-PCS; principal; 2023-03-27)
PROC: 08NE3ZZ Release Right Retina, Percutaneous Approach (ICD-10-PCS; 2023-03-27)
DX: H35.341 Macular cyst, hole, or pseudohole, right eye (principal); Z88.6 Allergy status to analgesic agent; Z88.0 Allergy status to penicillin
CPT/HCPCS: 67042; J3010; 67025; J0171; J0690; J2250; J2704; J3490